=== PATIENT | male | born 1990 | race Caucasian/White ===

== ENCOUNTER 2022-05-10 12:32 | Emergency (ER) | payer OTHER ==
[2022-05-10 12:39] VITALS: BP 130/80
--- NOTE | 2022-05-10 13:34 | ED Physician Documentation ---
History of Present Illness - Stated complaint Stated Complaint: R FACE SWELLING - Chief complaint Chief Complaint: Heent - History obtained from History obtained from: Patient - History of Present Illness Timing: Today Pain level max: 2 Pain level now: 2 - Additonal information Additional information: Patient is a 31-year-old male who presents to the emergency department with right-sided facial swelling. He states that this started while eating a sandwich today. No pain. No fevers. No cough. No wheezing. No stridor. No difficulty eating or drinking. Nothing makes it better or worse. Review of Systems Constitutional: denies: Fever, Chills Nose: denies: Rhinorrhea / runny nose, Congestion Throat: denies: Sore throat Respiratory: denies: Cough GI: denies: Nausea, Vomiting, Diarrhea Skin: denies: Rash Musculoskeletal: denies: Neck pain, Back pain Neurologic: denies: Headache PD PAST MEDICAL HISTORY - Past Medical History Past Medical History: No - Past Surgical History Past Surgical History: No - Allergies Allergies/Adverse Reactions: Allergies Allergy/AdvReac Type Severity Reaction Status Date / Time No Known Drug Allergies Allergy Verified 05/10/22 12:37 PD ED PE NORMAL - Vitals Vital signs reviewed: Yes - General General: Alert and oriented X 3, No acute distress - HEENT HEENT: Moist mucous membranes, Other (Normal oropharynx. Mild swelling of the right parotid gland. Otherwise normal examination of the oropharynx. No lymphadenopathy) - Neck Neck: Supple, no meningeal sign, No adenopathy - Cardiac Cardiac: RRR - Derm Derm: Warm and dry - Neuro Neuro: Alert and oriented X 3 Results - Vitals Vitals: Vital Signs - 24 hr 05/10/22 12:37 Temperature 36.5 C Heart Rate 82 Respiratory 16 Rate Blood Pressure 130/80 O2 Saturation 100 Oxygen O2 Source Room air PD MEDICAL DECISION MAKING - ED course Complexity details: considered differential, d/w patient ED course: Patient is a 31-year-old male with what appears to be sialoadenitis of the right parotid gland. No indication for antibiotics. We will continue supportive care with warm compresses, sour candy and milking of the gland. We will have him follow-up with ENT if he worsens. No evidence of infection. Patient counseled regarding signs and symptoms for which I believe and urgent re- evaluation would be necessary. Patient with good understanding of and agreement to plan and is comfortable going home at this time This document was made in part using voice recognition software. While efforts are made to proofread this document, sound alike and grammatical errors may occur. Departure - Departure Disposition: 01 Home, Self Care Clinical Impression: Parotid sialolithiasis Condition: Good Instructions: ED Sublingual Gland Obstruction Follow-Up: your,doctor as needed [Other] [facility] [Provider Group] Comments: Please follow up with your doctor as needed for further care. This should resolve on its own Return if you worsen. If it recurs you may need to see ENT. Discharge Date/Time: 05/10/22 13:51
== END 2022-05-10 13:51 | disposition home or self-care (01) ==
LOC: ED 12:32
DX: K11.5 Sialolithiasis (principal)
CPT/HCPCS: 99281; 99282